=== PATIENT | female | born 1940 | race Caucasian/White ===

== ENCOUNTER 2017-03-26 13:07 | Emergency (ER) | payer MEDICARE, OTHER ==
[2017-03-26 13:47] LABS: BILIRUBIN NEGATIVE (NEGATIVE); BLOOD NEGATIVE Ery/uL (NEGATIVE); CLARITY HAZY (CLEAR); COLOR YELLOW (YELLOW); GLUCOSE (U) NORMAL (NORMAL); KETONE (U) NEGATIVE (NEGATIVE); LEUKOCYTES 2+ Leu/uL (NEGATIVE); NITRITE NEGATIVE (NEGATIVE); PROTEIN TRACE (LOW) mg/dL (NEGATIVE); UROBILINOGEN 0.2 mg/dL (0.2-1.0)
[2017-03-26 13:48] LABS: BACTERIA TRACE
[2017-03-26 14:02] LABS: BASOPHIL 0.1 % (0-2); HCT 47.6 % (37.0-47.0); HGB 16.2 g/dl (12.5-16.0); LYMPHOCYTE 9.3 % (15-48); MCH 30.2 pg (25.0-31.0); MCV 88.6 fL (78.0-100.0); MONOCYTE 5.5 % (0-12); MPV 9.5 fL (6.0-9.5); NEUTROPHIL 84.1 % (41-80); PLT 270 K/uL (150-400); RBC 5.37 M/uL (4.20-5.40); RDW 14.5 % (11.5-14.0); WBC 14.7 K/uL (4.0-10.5)
[2017-03-26 14:20] LABS: ALBUMIN 4.4 g/dL (3.4-4.8); BILIRUBIN - TOTAL 0.7 mg/dL (0.1-1.0); CREATININE 0.9 mg/dL (0.5-1.0); GLOBULIN (CALCULATION) 3.5 g/dL (2.2-4.2); POTASSIUM 3.7 mmol/L (3.5-5.1); TOTAL PROTEIN 7.9 g/dL (6.4-8.3)
== END 2017-03-26 20:46 | disposition other institution (70) ==
LOC: FER 13:07
PROVIDERS: Emergency Medicine
DX: K44.0 Diaphragmatic hernia with obstruction, without gangrene (principal); I10 Essential (primary) hypertension; E03.9 Hypothyroidism, unspecified; Z79.899 Other long term (current) drug therapy
CPT/HCPCS: 36415; 71250; 80053; 81001; 82150; 83605; 83690; 85025; 93005; J2270; J2405